=== PATIENT | female | born 1950 | race Caucasian/White ===

== ENCOUNTER 2017-03-03 12:00 | Emergency (ER) | payer OTHER ==
[2017-03-03 12:11] VITALS: BP 134/85; PULSE 62; TEMP 98.1; BMI 22.4
--- NOTE | 2017-03-03 12:12 | PDOC ---
History of Present Illness - General Chief Complaint: Injury Stated Complaint: RT ANKLE PAIN Time Seen by Provider: 03/03/17 12:07 History Source: Patient Exam Limitations: No Limitations - History of Present Illness Initial Comments: 03/03/17 12:08 CHIEF COMPLAINT: Right foot injury just prior to arrival HISTORY OF PRESENT ILLNESS: This is a 66-year-old woman with no significant past medical history. She states she stepped into a pothole just prior to arrival, twisting her right foot. She denies any injury to her right ankle. She states there is pain over the lateral midfoot. The pain gets worse with weightbearing. Currently, the pain is mild. She also got a superficial scrape to the top of her left foot, but there is no other injury to that area, and she was able to hop on her left foot without difficulty. REVIEW OF SYSTEMS: Fever or chills No head or neck injury Positive right foot injury, see history of present illness No right ankle injury Past History - Past Medical History Allergies/Adverse Reactions: Allergies Allergy/AdvReac Type Severity Reaction Status Date / Time No Known Allergies Allergy Verified 03/03/17 12:05 Home Medications: Ambulatory Orders Ibuprofen 600 mg PO TID PRN #14 tablet 03/03/17 Diabetes: No HTN: No - Immunization History Td Vaccination: No - Psycho/Social/Smoking Cessation Hx Anxiety: No Suicidal Ideation: No Smoking Status: No Smoking History: Never smoked Number of Cigarettes Smoked Daily: 0 *Physical Exam - Physical Exam Comments: 03/03/17 12:09 GENERAL: The patient is awake, alert, and fully oriented, in no acute distress. HEAD: Normal with no signs of trauma. EYES: Pupils equal, round and reactive to light, extraocular movements intact, sclera anicteric, conjunctiva clear. EXTREMITIES: The left leg is unremarkable throughout. The right leg has a normal hip, normal knee, normal ankle with no medial or lateral malleolar tenderness. Right foot has mild tenderness over the lateral midfoot, but medial to the fifth metatarsal. (Patient states she has a history of prior fracture of the fifth metatarsal.) Sensation and pulses and capillary refill of the right foot are all normal. Skin is intact. NEUROLOGICAL: Normal speech, normal gait. PSYCH: Normal mood, normal affect. SKIN: Intact. Warm, Dry, normal turgor, no rashes or lesions noted. ED Treatment Course - RADIOLOGY Radiology Studies Ordered: Category Date Time Status FOOT-RIGHT [RAD] Stat Radiology 03/03/17 12:07 Ordered Medical Decision Making - Medical Decision Making 03/03/17 12:11 Patient presents after stepping into a pot hole just prior to admission. She comes in by EMS due to pain in the right foot with weightbearing. She denies any right ankle injury, but she does have pain in her right lateral midfoot upon weightbearing. There is no visible swelling on examination. There is some mild tenderness over the lateral midfoot, but medial to the fifth metatarsal. The ankle is completely normal on examination. Plan: Right foot x-ray. No ankle x-ray indicated. 03/03/17 12:26 X-ray of the right foot was completed, 3 views. Upon my initial review, there is no evidence of fracture or dislocation. Final radiologist reading is pending at the time of disposition. Wet reading placed for callback procedure. *DC/Admit/Observation/Transfer Diagnosis at time of Disposition: Sprain of right foot Qualifiers: Encounter type: initial encounter Qualified Code(s): S93.601A - Unspecified sprain of right foot, initial encounter - Discharge Dispostion Disposition: HOME Condition at time of disposition: Stable Admit: No - Prescriptions Prescriptions: Ibuprofen 600 mg PO TID PRN #14 tablet PRN Reason: foot pain - Referrals Referrals: Kiko Garnett MD [Staff Physician] - - Patient Instructions Printed Discharge Instructions: DI for Foot Sprain Additional Instructions: You were evaluated today after twisting her right foot. The x-ray shows no broken bones on the preliminary review by the emergency room physician. The radiologist will perform a final review and will notify you if there is any abnormal finding. Rest, elevate the foot, apply the Harjit bandage to maintain support during the day, remove it at night. Apply ice packs for 20 minutes every few hours to prevent swelling. Take ibuprofen 600 mg 3 times a day if needed for pain. Follow-up with orthopedics, Dr. Kiko Garnett, if the symptoms are not improving in a few days. Return to the emergency department for any severe or progressive symptoms.
== END 2017-03-03 12:40 | disposition home or self-care (01) ==
LOC: FER 12:00
DX: S93.601A Unspecified sprain of right foot, initial encounter (principal); W17.89XA Other fall from one level to another, initial encounter; Y93.89 Activity, other specified; Y92.410 Unspecified street and highway as the place of occurrence of the external cause
CPT/HCPCS: 73630-TC-RT; 99283-25

== ENCOUNTER 2017-07-24 13:30 | Emergency (ER) | payer OTHER ==
[2017-07-24 13:36] VITALS: TEMP 98.1; BMI 22.4
--- NOTE | 2017-07-24 14:12 | PDOC ---
History of Present Illness - General History Source: Patient Exam Limitations: No Limitations - History of Present Illness Timing/Duration: reports: intermittent Chest Pain Radiation: reports: no radiation <Noemi Alejandre - Last Filed: 07/24/17 16:25> - General History Source: Patient Exam Limitations: No Limitations <AyeRicardo - Last Filed: 07/25/17 22:26> - General Chief Complaint: Chest Pain Stated Complaint: CHEST PAIN Time Seen by Provider: 07/24/17 13:32 - History of Present Illness Initial Comments: 07/24/17 14:56 66F with no PMh presenting with right sided chest pain on exertion since yesterday morning. She states that she exercises a lot, is healthy, no pmh. Had an echo done last year. (Ricardo Griffiths) Past History <Noemi Alejandre - Last Filed: 07/24/17 16:25> - Past Medical History COPD: No Diabetes: No HTN: No - Immunization History Td Vaccination: No - Suicide/Smoking/Psychosocial Hx Smoking Status: No Smoking History: Never smoked Have you smoked in the past 12 months: No Number of Cigarettes Smoked Daily: 0 Information on smoking cessation initiated: No Hx Alcohol Use: (social) Substance Use Type: None <Ricardo Griffiths - Last Filed: 07/25/17 22:26> - Past Medical History Allergies/Adverse Reactions: Allergies Allergy/AdvReac Type Severity Reaction Status Date / Time No Known Allergies Allergy Verified 07/24/17 13:31 Home Medications: Ambulatory Orders NK [No Known Home Medication] 07/24/17 Review of Systems - Review of Systems Able to Perform ROS?: Yes Is the patient limited Iranian proficient: No Constitutional: No: Symptoms Reported HEENTM: No: Symptoms Reported Respiratory: Yes: See HPI Cardiac (ROS): No: Symptoms Reported ABD/GI: No: Symptoms Reported : No: Symptoms Reported Musculoskeletal: No: Symptoms Reported Integumentary: No: Symptoms Reported Neurological: No: Symptoms reported <Ricardo Griffiths - Last Filed: 07/25/17 22:26> *Physical Exam - Physical Exam General Appearance: Yes: Nourished, Appropriately Dressed, Apparent Distress HEENT: positive: EOMI, WANDA, Normal ENT Inspection Neck: negative: Tender Respiratory/Chest: positive: Lungs Clear, Normal Breath Sounds. negative: Chest Tender Cardiovascular: positive: Regular Rhythm, Regular Rate, S1, S2 Gastrointestinal/Abdominal: positive: Normal Bowel Sounds, Flat, Soft. negative : Tender Neurologic: positive: Fully Oriented, Alert, Normal Mood/Affect <Ricardo Griffiths - Last Filed: 07/25/17 22:26> - Vital Signs Last Vital Signs Temp Pulse Resp BP Pulse Ox 98.1 F 78 16 136/75 98 07/24/17 15:20 07/24/17 15:20 07/24/17 15:20 07/24/17 15:20 07/24/17 15:20 ED Treatment Course - LABORATORY CBC & Chemistry Diagram: 07/24/17 14:15 07/24/17 14:15 <Noemi Alejandre - Last Filed: 07/24/17 16:25> - LABORATORY CBC & Chemistry Diagram: 07/24/17 14:15 07/24/17 14:15 <Ricardo Griffiths - Last Filed: 07/25/17 22:26> - ADDITIONAL ORDERS Additional order review: 07/24/17 14:15 RBC 4.87 MCV 89.7 MCHC 33.7 RDW 12.1 MPV 9.6 Neutrophils % 55.8 Lymphocytes % 29.1 Monocytes % 11.6 H Eosinophils % 1.4 Basophils % 2.1 H - RADIOLOGY Radiology Studies Ordered: Category Date Time Status CXRPORT [CHEST X-RAY PORTABLE*] [RAD] Stat Radiology 07/24/17 14:04 Completed Medical Decision Making <Noemi Alejandre - Last Filed: 07/24/17 16:25> <Ricardo Griffiths - Last Filed: 07/25/17 22:26> - Medical Decision Making 07/25/17 22:25 EKG, CXR, labs, lytes cardiac enzymes all negative. PAtient d/c and told to follow up with PCP or blacking wheel tender for eventual stress test. 07/25/17 22:26 Told to come back for any new, worsening or concerning symptoms. (Ricardo Griffiths) *DC/Admit/Observation/Transfer <Noemi Alejandre S - Last Filed: 07/24/17 16:25> - Discharge Dispostion Admit: No <Ricardo Griffiths - Last Filed: 07/25/17 22:26> Diagnosis at time of Disposition: Costochondritis, acute, Anxiety, Atypical chest pain - Discharge Dispostion Disposition: HOME Condition at time of disposition: Improved - Referrals Referrals: Hoa Luke [Primary Care Provider] - - Patient Instructions Printed Discharge Instructions: DI for Atypical Chest Pain Additional Instructions: Come back for any new, worsening or concerning symptoms
[2017-07-24 14:26] LABS: BASOPHIL 2.1 % (0-2.0); EOSINOPHIL 1.4 % (0-4.5); MCH 30.2 pg (25.7-33.7); MCHC 33.7 g/dl (32.0-36.0); MEAN CELL VOLUME 89.7 fl (80-96); MEAN PLT VOLUME 9.6 fl (7.5-11.1); NEUTROPHILS 55.8 % (42.8-82.8); PLATELET COUNT 394 K/MM3 (134-434); RDW 12.1 % (11.6-15.6); WHITE BLOOD COUNT 9.5 K/mm3 (4.0-10.8)
[2017-07-24 14:39] LABS: ALBUMIN 4.4 g/dl (3.5-5.0); ALK PHOS 64 U/L (32-92); ANION GAP 10 (8-16); BILIRUBIN,TOTAL 0.4 mg/dl (0.2-1.0); CALCIUM 9.7 mg/dl (8.4-10.2); CO2 27 mmol/L (22-28); CPK 68 IU/L (26-192); CREATININE 0.7 mg/dl (0.6-1.3); GLUCOSE,RANDOM 87 mg/dl (74-106); SGOT/AST 29 U/L (10-42); SGPT/ALT 21 U/L (10-40); TOT PROT 7.1 g/dl (6.4-8.3)
[2017-07-24 15:15] LABS: TROPONIN I (DFP) < 0.03 ng/ml (0.03-0.50)
[2017-07-24 15:40] VITALS: BP 136/75; PULSE 78
--- NOTE | 2017-07-25 08:55 | EKG ---
Test Reason : Blood Pressure : / mmHG Vent. Rate : 065 BPM Atrial Rate : 065 BPM P-R Int : 150 ms QRS Dur : 084 ms QT Int : 402 ms P-R-T Axes : 009 004 006 degrees QTc Int : 418 ms NORMAL SINUS RHYTHM NORMAL ECG NO PREVIOUS ECGS AVAILABLE Confirmed by ISAIAH GUILLAUME MD ([id number]) on 07/25/2017 8:55:08 AM Referred By: SILVESTRE AGUIRRE Confirmed By:ISAIAH GUILLAUME MD
--- NOTE | 2017-07-26 15:47 | PDOC ---
Attending Attestation - Resident Resident Name: Ricardo Griffiths - ED Attending Attestation I have performed the following: I have examined & evaluated the patient, The case was reviewed & discussed with the resident, I agree w/resident's findings & plan - HPI HPI: RIGHT SIDED CHEST PAIN IN THIS ATHLETIC YOUNG LADY. WITH NORMAL ECHO REPORTEDLY DONE RECENTLY 07/26/17 15:48 - Physicial Exam PE: ALERT, ORIENTED X3 NO ACUTE DISTRESS HEAD ERON NECK SUPLE MILD TO MODERATE TENDERNESS AT PALPATION ON THE THORACIC CAGE HEART SIS2 LUNGS CLEAR 07/26/17 15:50 - Medical Decision Making 07/26/17 15:47
== END 2017-07-24 15:40 | disposition home or self-care (01) ==
LOC: FER 13:30
DX: M94.0 Chondrocostal junction syndrome [Tietze] (principal); R07.89 Other chest pain; F41.9 Anxiety disorder, unspecified
CPT/HCPCS: 36415; 71010-TC; 80053; 82550; 84484; 85025; 93005; 99284-25

== ENCOUNTER 2017-09-03 08:14 | Inpatient (IN) | payer OTHER ==
[2017-09-03 08:18] VITALS: BMI 22.4
[2017-09-03] MEDS ORDERED: SODIUM CHLORIDE 0.9% 500 ML INFUS.BAG IV ONE ×2 (08:37→13:10)
--- NOTE | 2017-09-03 08:43 | PDOC ---
History of Present Illness - General Chief Complaint: Diarrhea Stated Complaint: blood in stool, diarrhea, abd pain Time Seen by Provider: 09/03/17 08:18 - History of Present Illness Initial Comments: 09/03/17 08:37 66-year-old female with no significant past medical history presents the emergency department complaining of diarrhea and bright red blood per rectum. The patient reports she was in her usual state of health until 11 PM last night she began to experience lower abdominal cramping followed initially by brown watery diarrhea however at 4 AM the patient began to notice bright red blood with clots. She reports up to 5 episodes of painless bright red blood per rectum , filling up the toilet. She reports with one episode she felt very lightheaded and became diaphoretic and almost passed out. She reports spending the day exploring the city yesterday and had dinner at a restaurant. She reports she had the same food as her family except she had dish with clams that only she ate. Reports occasional ibuprofen use for pain but not everyday. Pt has taken 4 immodium pills since last night to try to slow down the diarrhea with minimal improvement. Reports currently feeling thirsty. Denies loss of consciousness or falls. Has never had similar symptoms in the past. Not on any blood thinners. No recent antibiotics or hospitalizations. Reports her last colonoscopy was when she was 52 and she was told she had diverticuli but otherwise had a normal colonoscopy. No hx diverticulosis or diverticulitis. Denies any nausea, vomiting , current abdominal pain. Denies focal weakness or numbness. Denies chest pain or shortness of breath. Denies urinary symptoms. Denies significant weight loss recently. No recent travel. PMD: Dr. Hoa Luke Social: denies etoh, tobacco, illicit drugs. Past History - Past Medical History Allergies/Adverse Reactions: Allergies Allergy/AdvReac Type Severity Reaction Status Date / Time No Known Allergies Allergy Verified 09/03/17 08:16 Home Medications: Ambulatory Orders NK [No Known Home Medication] 07/24/17 COPD: No Diabetes: No HTN: No - Immunization History Td Vaccination: No - Suicide/Smoking/Psychosocial Hx Smoking Status: No Smoking History: Never smoked Have you smoked in the past 12 months: No Number of Cigarettes Smoked Daily: 0 Hx Alcohol Use: Yes Drug/Substance Use Hx: No Substance Use Type: Alcohol Review of Systems - Review of Systems Comments:: 09/03/17 08:43 GENERAL/CONSTITUTIONAL: No fever or chills. No weakness. +diaphoresis. HEAD, EYES, EARS, NOSE AND THROAT: No change in vision. No ear pain or discharge. No sore throat. GASTROINTESTINAL: No nausea, vomiting, +diarrhea +rectal bleeding GENITOURINARY: No dysuria, frequency, or change in urination. CARDIOVASCULAR: No chest pain or shortness of breath. RESPIRATORY: No cough, wheezing, or hemoptysis. MUSCULOSKELETAL: No joint or muscle swelling or pain. No neck or back pain. SKIN: No rash NEUROLOGIC: No headache, vertigo, loss of consciousness, or change in strength/ sensation. ENDOCRINE: No increased thirst. No abnormal weight change. HEMATOLOGIC/LYMPHATIC: No anemia, easy bleeding, or history of blood clots. ALLERGIC/IMMUNOLOGIC: No hives or skin allergy. *Physical Exam - Vital Signs Last Vital Signs Temp Pulse Resp BP Pulse Ox 98.6 F 78 16 130/89 100 09/03/17 08:16 09/03/17 08:16 09/03/17 08:16 09/03/17 08:16 09/03/17 08:16 - Physical Exam Comments: 09/03/17 08:48 GENERAL: Awake, alert, and fully oriented, in no acute distress HEAD: No signs of trauma EYES: PERRLA, EOMI, sclera anicteric, conjunctiva clear ENT: Auricles normal inspection, hearing grossly normal, nares patent, oropharynx clear without exudates. dry MM NECK: Normal ROM, supple, no lymphadenopathy, JVD, or masses LUNGS: Breath sounds equal, clear to auscultation bilaterally. No wheezes, and no crackles HEART: Regular rate and rhythm, normal S1 and S2, no murmurs, rubs or gallops ABDOMEN: Soft, nontender, normoactive bowel sounds. +voluntary guarding throughout, no rebound. No masses. RECTAL: No aqctival bleeding, no hemorrhoids, no stool in rectal vault. Pt had BM shortly thereafter with bright red mucousy stool EXTREMITIES: Normal range of motion, no edema. No clubbing or cyanosis. No cords, erythema, or tenderness NEUROLOGICAL: Normal speech, cranial nerves intact, negative pronator drift, 5/ 5 strength in all 4 extremities, normal sensation to light touch in all 4 extremities, normal cerebellar exam, normal gait, normal reflexes and tone SKIN: Warm, Dry, normal turgor, no rashes or lesions noted. ED Treatment Course - LABORATORY CBC & Chemistry Diagram: 09/03/17 08:44 09/03/17 08:44 Medical Decision Making - Medical Decision Making 09/03/17 08:53 56-year-old female with no significant past medical history presents with multiple episodes of bright red blood per rectum. Vitals initially are unremarkable. Exam with voluntary guarding. Patient had a bright red bloody bowel movements with mucus in the ED. Differential is wide and includes but is not limited to diverticulosis versus infectious colitis possibly secondary vibrio parahemolyticus given the patient ate clams yesterday or enterohemorrhagic Escherichia coli. Plan: -labs -CTAP -UA -IVF -likely admit 09/03/17 13:48 Labs remarkable for leukocytosis to 12. Patient reports initial relief with morphine however pain has returned and required another dose of IV morphine. CT scan has been done however there have been multiple delays due to the study being locked in radiology. Discussed with Lissy (quality analyst/technical writer) who reports she is currently working on releasing the study so that he can be read. Case discussed with Dr. Luke who adds that the patient had a pancratic cyst that was worked up with MRI a few months ago and was thought to be a pseudocyst. She agrees with our management and will follow up with the patient as an outpatient. 09/03/17 14:10 CT scan with infectious vs inflammatory colitis. Pt with persistent abd pain. Pt infomred of results. Medicine has been microblogged for admission, awaiting call back. 09/03/17 14:40 Case discussed with Miriam Isabel, pt to be admitted to Dr. Gordon. Case discussed in detail with admitting physician including history, physical exam and ancillary studies. Admitting physician has assumed care for the patient, will follow all pending diagnostics and will complete the evaluation and treatment. *DC/Admit/Observation/Transfer Diagnosis at time of Disposition: BRBPR (bright red blood per rectum) - Discharge Dispostion Condition at time of disposition: Stable Admit: Yes - Referrals - Patient Instructions - Post Discharge Activity - Attestations Physician Attestion: 09/03/17 15:01 I, Dr. Crystal Segovia MD, attest that this document has been prepared under my direction and personally reviewed by me in its entirety. I further attest, that it accurately reflects all work, treatment, procedures and medical decision -making performed by me.
[2017-09-03 09:05] LABS: EOSINOPHIL 0.5 % (0-4.5); MCH 30.1 pg (25.7-33.7); MCHC 33.5 g/dl (32.0-36.0); MEAN CELL VOLUME 89.8 fl (80-96); MEAN PLT VOLUME 10.3 fl (7.5-11.1); NEUTROPHILS 81.9 % (42.8-82.8); PLATELET COUNT 386 K/MM3 (134-434); RDW 12.4 % (11.6-15.6); WHITE BLOOD COUNT 11.8 K/mm3 (4.0-10.8)
[2017-09-03] MEDS ORDERED: morphine SULFATE 4 MG/ML VIAL ONE ×2 (09:23→11:34)
[2017-09-03] MEDS ORDERED: morphine CARPU-JECT 4 MG/1 ML DISP.SYRIN IVPUSH ONE ×2 (09:32→11:29)
[2017-09-03 09:33] LABS: ACTIVATED PTT 28.3 SECONDS (24.0-38.9); ALBUMIN 4.3 g/dl (3.5-5.0); ALK PHOS 67 U/L (32-92); ANION GAP 6 (8-16); BILIRUBIN,TOTAL 0.8 mg/dl (0.2-1.0); CALCIUM 9.5 mg/dl (8.4-10.2); CO2 24 mmol/L (22-28); CREATININE 0.7 mg/dl (0.6-1.3); GLUCOSE,RANDOM 116 mg/dl (74-106); SGOT/AST 28 U/L (10-42)
[2017-09-03 09:38] LABS: INR 0.98 (0.82-1.09)
[2017-09-03 11:16] LABS: SGPT/ALT 24 U/L (12-78)
[2017-09-03 13:56] LABS: URINE APPEARANCE CLEAR; URINE BILIRUBIN NEGATIVE (NEGATIVE); URINE COLOR YELLOW; URINE GLUCOSE (UA) NEGATIVE (NEGATIVE); URINE KETONE NEGATIVE (NEGATIVE)
[2017-09-03 13:57] LABS: URINE BLOOD NEGATIVE (NEGATIVE); URINE NITRITE NEGATIVE (NEGATIVE); URINE PROTEIN NEGATIVE (NEGATIVE); URINE UROBILINOGEN 0.2 (0.2-1.0)
[2017-09-03 13:58] LABS: URINE LEUK ESTERASE NEGATIVE (NEGATIVE)
[2017-09-03] MEDS ORDERED: SODIUM CHLORIDE 1,000 ML IV SCH (16:15)
[2017-09-03] MEDS ORDERED: morphine SULFATE 4 MG/ML VIAL IVPUSH PRN ×2 (16:49→21:20)
[2017-09-03] MEDS ORDERED: CIPROFLOXACIN 200 MG/D5W 100 ML IVPB SCH ×2 (18:00→22:00)
--- NOTE | 2017-09-03 18:35 | PN ---
Progress Note (short form) - Note Progress Note: ID Consult dictated 66 y/o female admitted with crampy abdominal pain, bloody diarrhea, near syncope. No fever, slightly elevated WBC Infectious colitis v. inflammatory bowel disease Await BC, stool studies Empiric ceftriaxone / flagyl
[2017-09-03] MEDS ORDERED: CEFTRIAXONE 2 GM in DEXTROSE 5%-WATER - 100 ML IVPB SCH (18:45)
--- NOTE | 2017-09-03 19:21 | CONS ---
INFECTIOUS DISEASE CONSULTATION DATE OF CONSULTATION: 09/03/2017 HISTORY OF PRESENT ILLNESS: The patient is a 66-year-old, previously healthy female, who is evaluated for bloody diarrhea. Patient states that she was well until 11 p.m. last evening. She had dinner at a restaurant at approximately 6 p.m., having a meal which included prosciutto, fried calamari, and linguini in a white clam sauce. She did well until after she fell asleep. She awoke at 11 p.m. with crampy abdominal pain. She had multiple episodes of frankly bloody diarrhea. She also developed diaphoresis, weakness, and near syncope. She presented to the emergency room where a CAT scan was performed and showed infectious versus inflammatory colitis involving the descending colon and proximal sigmoid. In addition, cystic lesions were present in the pancreatic head and right hepatic lobe. She apparently has a history of pancreatic cysts in the past. She denies any fever. White blood cell count was slightly elevated. No other diners became ill. However, nobody had the same meal. She denies any recent antibiotic therapy. No recent travel. No known ill contacts. No prior history of rectal bleeding or inflammatory bowel disease. She had a colonoscopy at age 52. PAST MEDICAL HISTORY: Negative. No recent hospitalizations. ALLERGIES: No known allergies. LABORATORY DATA: White count 11.8, neutrophils 87, lymphocytes 12, monocytes 3; hematocrit 44.9; platelet count 386. BUN 13, creatinine 0.7. Liver enzymes normal. Urinalysis: Negative leukocyte esterase. Lipase 24. PHYSICAL EXAMINATION: General: She is supine in bed. She appears weak, however, not acutely toxic appearing. Vital Signs: Temperature 97.8; blood pressure 144/74; pulse 60, regular; respirations 16 per minute. HEENT: Sclerae are anicteric. Dry mucous membranes. Heart: Sounds S1, S2. Lungs: Clear. Abdomen: Positive bowel sounds. Abdomen is soft. There is mild diffuse tenderness diffusely. There is no mass, rebound, or rigidity. Extremities: Negative for edema. IMPRESSION: A 66-year-old female admitted with crampy abdominal pain, bloody diarrhea, and near syncope. Patient is afebrile, slightly elevated white blood cell count. CAT scan consistent with infectious colitis versus inflammatory bowel disease. RECOMMENDATIONS: Await blood cultures, obtain stool cultures for enteric pathogens including salmonella, shigella, campylobacter, enterotoxigenic E. coli. Will obtain Shiga toxin, stool for norovirus and rotavirus, blood cultures, ova and parasites, C. difficile. Empiric antibiotic coverage with ceftriaxone and Flagyl. GI followup. Will follow. Thank you for the kind referral. ROSETTA CLIFFORD M.D. [id number]
--- NOTE | 2017-09-03 20:08 | HP ---
Admitting History and Physical - Primary Care Physician PCP: Dr. Hoa Livingston (Doctor not on staff) - Admission Chief Complaint: Bloody Diarrhea, Abdominal Cramping History of Present Illness: This is a 66 y/o woman with a past medical history of OA, Pancreatic Cysts. Who reports to the ED with lower abdominal cramping, diarrhea and bright red blood per rectum since 11pm last night. Patient reports eating seafood- clams and pasta at a restaurant in [facility] last night around 6pm. Patient reports at 11pm she began having abdominal cramping and diarrhea with BRBPR and mucous > 6 times. She reports that initially she became diaphoretic and nauseous- resolved. Patient reports no other family members became ill, but they did not consume the same meal. Patient reports feeling well earlier that day without incident. Patient reports having an allergic reaction to Clams- Hives many years ago, and has had Clams since without incident. Patient reports not following a "healthy diet" as well as not drinking lots of fluids. Patient reports a change in bowel habits around June, but has since been more regular. Her last colonoscopy was at age 52- no polyps, per pt. Patient denies fever, chills, cough, CP, vomiting, constipation, dysuria, hematuria History Source: Patient Limitations to Obtaining History: No Limitations - Past Medical History Gastrointestinal: Yes: Other (pancreatic cysts) Reproductive: Yes: Postmenopausal ...LMP Comment: lmp 20 years ago ...: No Musculoskeletal: Yes: Osteoarthritis Dermatology: Yes: Basal Cell (in her 20s) - Past Surgical History Past Surgical History: Yes: Colonoscopy Additional Past Surgical History: Breast Reduction - Smoking History Smoking history: Never smoked Have you smoked in the past 12 months: No Aproximately how many cigarettes per day: 0 - Alcohol/Substance Use Hx Alcohol Use: Yes (socially) History of Substance Use: reports: None - Social History Usual Living Arrangement: Yes: Alone ADL: Independent 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 History of Recent Travel: No Home Medications - Allergies Allergies/Adverse Reactions: Allergies Allergy/AdvReac Type Severity Reaction Status Date / Time No Known Allergies Allergy Verified 09/03/17 08:16 - Home Medications Home Medications: Ambulatory Orders NK [No Known Home Medication] 07/24/17 Family Disease History - Family Disease History Family Disease History: CA: Brother (Throat), Other: Mother (Dementia, Arthritis ) Review of Systems - Review of Systems Constitutional: reports: Diaphoresis, Weakness Eyes: reports: No Symptoms HENT: reports: Other (Dry mucous membranes) Neck: reports: No Symptoms Cardiovascular: reports: No Symptoms Respiratory: reports: No Symptoms Gastrointestinal: reports: Abdominal Pain, Diarrhea, Rectal Bleeding Genitourinary: reports: No Symptoms Breasts: reports: No Symptoms Reported Musculoskeletal: reports: No Symptoms Integumentary: reports: No Symptoms Neurological: reports: No Symptoms Endocrine: reports: No Symptoms Psychiatric: reports: No Symptoms Pain Intensity: 4 Physical Examination Vital Signs: Vital Signs Temperature 97.8 F 09/03/17 15:30 Pulse Rate 60 09/03/17 15:30 Respiratory Rate 16 09/03/17 15:30 Blood Pressure 144/74 09/03/17 15:30 O2 Sat by Pulse Oximetry (%) 100 09/03/17 15:30 Labs: CBC, BMP 09/03/17 08:44 09/03/17 08:44 Imaging - Results Cat Scan: Report Reviewed (CTAP-nonspecific infectious vs inflammatory Colitis descending colon proximal sigmoid colon.), Image Reviewed Problem List - Problems (1) Colitis, acute Code(s): K52.9 - NONINFECTIVE GASTROENTERITIS AND COLITIS, UNSPECIFIED (2) Abdominal cramping Code(s): R10.9 - UNSPECIFIED ABDOMINAL PAIN (3) BRBPR (bright red blood per rectum) Code(s): K62.5 - HEMORRHAGE OF ANUS AND RECTUM (4) DVT prophylaxis Code(s): TKX5672 - Assessment/Plan This is a 66 y/o woman with a PMHx of: OA, Pancreatic Cysts. Admitted with Acute Colitis likely secondary to shellfish poisoning Plan: 1. GI: Acute Colitis - Likely secondary to Shellfish Poisoning - CTAP report- nonspecific infectious vs inflammatory colitis, descending colon , proximal sigmoid colon - Blood Cultures-pending - Stool cultures-pending - Mild leukocytosis, L- shift, afebrile, lactic acid- normal - Rocephin/Flagyl started in ED and continued - ID Following - Appreciate GI Consult - Continue IVF - Continue Morphine Sulfate prn - NPO except ice chips - Repeat CBCD, BMP in am - Monitor vitals 2. Bloody Diarrhea - See Above 3. OA - No current meds - Will continue to monitor and treat accordingly 4. Pancreatic Cysts - f/u with your PMD/GI as indicated 5. FEN - NS@83ml/hr - Replete lytes prn 6. DVT Prophylaxis - OOB - SCDs Code Status: Full Code Dispo: Requires Inpatient Care Visit type - Emergency Visit Emergency Visit: Yes ED Registration Date: 09/03/17 Care time: The patient presented to the Emergency Department on the above date and was hospitalized for further evaluation of their emergent condition. - New Patient This patient is new to me today: Yes Date on this admission: 09/03/17 - Critical Care Critical Care patient: No
[2017-09-03] MEDS: METRONIDAZOLE 500 MG PREMIXED 500 MG/100 ML MG IVPB SCH (20:12)
[2017-09-04] MEDS: METRONIDAZOLE 500 MG PREMIXED 500 MG/100 ML MG IVPB SCH ×3 (01:45→17:45)
[2017-09-04 07:36] LABS: BASOPHIL 1.5 % (0-2.0); EOSINOPHIL 2.5 % (0-4.5); MCH 30.5 pg (25.7-33.7); MCHC 33.6 g/dl (32.0-36.0); MEAN CELL VOLUME 90.7 fl (80-96); MEAN PLT VOLUME 9.6 fl (7.5-11.1); NEUTROPHILS 72.5 % (42.8-82.8); PLATELET COUNT 313 K/MM3 (134-434); RDW 12.5 % (11.6-15.6); WHITE BLOOD COUNT 10.7 K/mm3 (4.0-10.8)
[2017-09-04 07:57] LABS: ANION GAP 4 (8-16); CALCIUM 8.6 mg/dl (8.4-10.2); CO2 25 mmol/L (22-28); CREATININE 0.7 mg/dl (0.6-1.3); GLUCOSE,RANDOM 100 mg/dl (74-106)
--- NOTE | 2017-09-04 09:12 | PN ---
Physical Exam: SUBJECTIVE: Patient seen and examined, reports abdominal pain has resolved, reports feeling hungry, patient denies any tactile fevers OBJECTIVE: patient is a 66 y/o woman with a past medical history of OA and Pancreatic Cysts, patient was admitted from the emergency department for colitis. Vital Signs Period Temp Pulse Resp BP Sys/Mckeon Pulse Ox Last 24 Hr 97.8 F-98.3 F 54-72 16-18 111-144/50-74 97-100 GENERAL: The patient is awake, alert, and fully oriented, in no acute distress. HEAD: Normal with no signs of trauma. EYES: PERRL, extraocular movements intact, sclera anicteric, conjunctiva clear. No ptosis. ENT: Ears normal, nares patent, oropharynx clear without exudates, moist mucous membranes. NECK: Trachea midline, full range of motion, supple. LUNGS: Breath sounds equal, clear to auscultation bilaterally, no wheezes, no crackles, no accessory muscle use. HEART: Regular rate and rhythm, S1, S2 without murmur, rub or gallop. ABDOMEN: Soft, nontender, nondistended, hyperactive bowel sounds, no guarding, no rebound, no hepatosplenomegaly, no masses. EXTREMITIES: 2+ pulses, warm, well-perfused, no edema. NEUROLOGICAL: Cranial nerves II through XII grossly intact. Normal speech, gait not observed. PSYCH: Normal mood, normal affect. SKIN: Warm, dry, normal turgor, no rashes or lesions noted Laboratory Results - last 24 hr CBC WBC 10.7 K/mm3 (4.0-10.8) 09/04/17 07:30 RBC 4.19 M/mm3 (3.60-5.2) 09/04/17 07:30 Hgb 12.8 GM/dl (10.7-15.3) D 09/04/17 07:30 Hct 38.0 % (32.4-45.2) D 09/04/17 07:30 MCV 90.7 fl (80-96) 09/04/17 07:30 MCH 30.5 pg (25.7-33.7) 09/04/17 07:30 MCHC 33.6 g/dl (32.0-36.0) 09/04/17 07:30 RDW 12.5 % (11.6-15.6) 09/04/17 07:30 Plt Count 313 K/MM3 (134-434) 09/04/17 07:30 MPV 9.6 fl (7.5-11.1) 09/04/17 07:30 Neutrophils % 72.5 % (42.8-82.8) 09/04/17 07:30 Lymphocytes % 17.0 % (8-40) D 09/04/17 07:30 Monocytes % 6.5 % (3.8-10.2) D 09/04/17 07:30 Eosinophils % 2.5 % (0-4.5) D 09/04/17 07:30 Basophils % 1.5 % (0-2.0) 09/04/17 07:30 CMP Sodium 136 mmol/L (136-145) 09/04/17 07:30 Potassium 4.6 mmol/L (3.5-5.1) 09/04/17 07:30 Chloride 107 mmol/L (98-107) 09/04/17 07:30 Carbon Dioxide 25 mmol/L (22-28) 09/04/17 07:30 Anion Gap 4 (8-16) L 09/04/17 07:30 BUN 8 mg/dl (7-18) D 09/04/17 07:30 Creatinine 0.7 mg/dl (0.6-1.3) 09/04/17 07:30 Creat Clearance w eGFR > 60 (>60) 09/03/17 08:44 Random Glucose 100 mg/dl (74-106) 09/04/17 07:30 Lactic Acid 1.3 mmol/L (0.4-2.0) 09/03/17 08:44 Calcium 8.6 mg/dl (8.4-10.2) 09/04/17 07:30 Magnesium 1.8 mg/dL (1.8-2.4) 09/04/17 07:30 Total Bilirubin 0.8 mg/dl (0.2-1.0) D 09/03/17 08:44 AST 28 U/L (10-42) 09/03/17 08:44 ALT 24 U/L (12-78) 09/03/17 08:44 Alkaline Phosphatase 67 U/L (32-92) 09/03/17 08:44 Total Protein 7.0 g/dl (6.4-8.3) 09/03/17 08:44 Albumin 4.3 g/dl (3.5-5.0) 09/03/17 08:44 Lipase 24 U/L (22-51) 09/03/17 08:44 Active Medications Generic Name Dose Route Start Last Admin Trade Name Freq PRN Reason Stop Dose Admin Sodium Chloride 1,000 mls @ 83 mls/hr 09/03/17 16:15 09/03/17 18:26 Normal Saline - IV 83 mls/hr ASDIR CALI Administration Metronidazole 500 mg in 100 mls @ 100 mls/hr 09/03/17 18:45 09/04/17 09:00 Flagyl 500mg Premixed Ivpb - IVPB 100 mls/hr Q8H-IV CALI Administration Ceftriaxone Sodium 2 gm in 100 mls @ 200 mls/hr 09/04/17 18:00 Rocephin 2gm Ivpb (Pre-Docked) IVPB DAILY@1800 CALI Morphine Sulfate 4 mg 09/03/17 21:20 09/03/17 23:45 Morphine Sulfate IVPUSH 4 mg Q6H PRN Administration PAIN Microbiology 09/03/17 08:55 Stool Gram Stain - Final 09/03/17 08:55 Stool Salmonella/Shigella Culture - Preliminary NO ENTERIC PATHOGENS, 24 HOURS, ON PRIMARY PLATES 09/03/17 08:55 Stool Yersinia Culture - Preliminary NO ENTERIC PATHOGENS, 24 HOURS, ON PRIMARY PLATES 09/03/17 08:55 Stool Vibrio Culture - Preliminary NO ENTERIC PATHOGENS, 24 HOURS, ON PRIMARY PLATES 09/03/17 08:55 Stool Escherichia coli 0157 Culture - Preliminary NO ENTERIC PATHOGENS, 24 HOURS, ON PRIMARY PLATES IMAGING ct of abd/pelvis: nonspecific infectious vs inflammatory colitis, descending colon, proximal sigmoid colon ASSESSMENT/PLAN: 1. GI: Acute Colitis - secondary to inflammatory vs infectious, leukocytosis resolved patient is afebrile, continue flagyl and rocephin - stool culture are negative to date - clear liquid diet then advance as tolerated - ID, Dr Acevedo consulted and following - Dr Lee, GI consulted, patient will require outpatient follow up within 6 weeks for colonoscopy 2. OA - No current meds - Will continue to monitor and treat accordingly 3. FEN - NS@83ml/hr - Replete lytes prn 4. DVT Prophylaxis - OOB - SCDs Code Status: Full Code Dispo: Requires Inpatient Care Visit type - Emergency Visit Emergency Visit: Yes ED Registration Date: 09/03/17 Care time: The patient presented to the Emergency Department on the above date and was hospitalized for further evaluation of their emergent condition. - New Patient This patient is new to me today: Yes Date on this admission: 09/04/17 - Critical Care Critical Care patient: No - Discharge Referral Referred to [facility] Med P.C.: No
[2017-09-04] MEDS ORDERED: ACETAMINOPHEN 325 MG TABLET (FP) PO PRN (09:55)
--- NOTE | 2017-09-04 10:19 | CON.GI ---
Consult Consult Specialty:: GI Referred by:: Hospitalist [facility] [place] - History of Present Illness History of Present Illness: A healthy 66 yof with acute onset lower abdominal, crampy pain, diarrhea and blood clots after a [place] out in the city. 9 other people who were at the table are asymptomatic. She is the only one who ate fried calamari. No prior history of the same. No history of IBD, recurrent colitis, chronically altered bowel habits. Last colonoscopy at age of 52. No weight loss, changes in stool caliper , dysphagia, odynophagia, jaundice. No history of excessive bleeding. No significant GI family history. This am, no events overnight, asymptomatic, comfortable, no bms since last night. 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 History of Recent Travel: No Home Medications - Allergies Allergies/Adverse Reactions: Allergies Allergy/AdvReac Type Severity Reaction Status Date / Time No Known Allergies Allergy Verified 09/03/17 08:16 - Home Medications Home Medications: Ambulatory Orders NK [No Known Home Medication] 07/24/17 Family Disease History - Family Disease History Family History: Unremarkable Family Disease History: CA: Brother (Throat), Other: Mother (Dementia, Arthritis ) Review of Systems Findings/Remarks: please refer to H&P, HPI Physical Exam-GI Vital Signs: Vital Signs Temperature 98.0 F 09/04/17 06:34 Pulse Rate 54 L 09/04/17 06:34 Respiratory Rate 18 09/04/17 06:34 Blood Pressure 111/50 09/04/17 06:34 O2 Sat by Pulse Oximetry (%) 97 09/04/17 06:34 Constitutional: Yes: Well Nourished, No Distress, Calm Eyes: Yes: Conjunctiva Clear HENT: Yes: Atraumatic Neck: Yes: Supple Cardiovascular: Yes: Regular Rate and Rhythm Respiratory: Yes: Regular Gastrointestinal Inspection: No: Ascites, Distention ...Auscultate: Yes: Normoactive Bowel Sounds ...Palpate: Yes: Soft. No: Firm/Rigid, Guarding, Tenderness Neurological: Yes: Alert, Oriented Psychiatric: Yes: Alert Labs: CBC, BMP 09/04/17 07:30 09/04/17 07:30 INR, PTT INR 0.98 (0.82-1.09) 09/03/17 08:44 Laboratory Results - last 24 hr 09/03/17 09/03/17 09/03/17 08:44 08:44 08:51 WBC RBC Hgb Hct MCV MCH MCHC RDW Plt Count MPV Neutrophils % Lymphocytes % Monocytes % Eosinophils % Basophils % Sodium Potassium Chloride Carbon Dioxide Anion Gap BUN Creatinine Random Glucose Calcium Magnesium ALT 24 Urine Color Urine Appearance Urine pH Ur Specific [place] Urine Protein Urine Glucose (UA) Urine Ketones Urine Blood Urine Nitrite Urine Bilirubin Urine Urobilinogen Ur Leukocyte Esterase Stool Occult Blood Blood Type B POSITIVE B POSITIVE Antibody Screen Negative 09/03/17 09/03/17 09/04/17 08:55 10:18 07:30 WBC 10.7 RBC 4.19 Hgb 12.8 D Hct 38.0 D MCV 90.7 MCH 30.5 MCHC 33.6 RDW 12.5 Plt Count 313 MPV 9.6 Neutrophils % 72.5 Lymphocytes % 17.0 D Monocytes % 6.5 D Eosinophils % 2.5 D Basophils % 1.5 Sodium Potassium Chloride Carbon Dioxide Anion Gap BUN Creatinine Random Glucose Calcium Magnesium ALT Urine Color Yellow Urine Appearance Clear Urine pH 5.0 Ur Specific [place] 1.010 Urine Protein Negative Urine Glucose (UA) Negative Urine Ketones Negative Urine Blood Negative Urine Nitrite Negative Urine Bilirubin Negative Urine Urobilinogen 0.2 Ur Leukocyte Esterase Negative Stool Occult Blood Positive Blood Type Antibody Screen 09/04/17 09/04/17 07:30 07:30 WBC RBC Hgb Hct MCV MCH MCHC RDW Plt Count MPV Neutrophils % Lymphocytes % Monocytes % Eosinophils % Basophils % Sodium 136 Potassium 4.6 Chloride 107 Carbon Dioxide 25 Anion Gap 4 L BUN 8 D Creatinine 0.7 Random Glucose 100 Calcium 8.6 Magnesium 1.8 ALT Urine Color Urine Appearance Urine pH Ur Specific [place] Urine Protein Urine Glucose (UA) Urine Ketones Urine Blood Urine Nitrite Urine Bilirubin Urine Urobilinogen Ur Leukocyte Esterase Stool Occult Blood Blood Type Antibody Screen Imaging - Results Cat Scan: Report Reviewed (colits (acute vs chronic). pancreatic, liver cysts) Problem List - Problems (1) Abdominal cramping Code(s): R10.9 - UNSPECIFIED ABDOMINAL PAIN (2) BRBPR (bright red blood per rectum) Code(s): K62.5 - HEMORRHAGE OF ANUS AND RECTUM (3) Colitis, acute Code(s): K52.9 - NONINFECTIVE GASTROENTERITIS AND COLITIS, UNSPECIFIED Assessment/Plan A 66 yo, healthy, with acute onset of the above symptoms/signs. No bms since yesterday. Strongly suspect infectious etiology. Doubt IBD, ischemia. Supportive care Follow blood and stool cultures CBC, CMP tomorrow in am Clear liquid diet and advance as tolerated Colonoscopy in 6 week - discussed with the patient
[2017-09-04] MEDS ORDERED: ZOLPIDEM TARTRATE 5 MG TABLET PO PRN (12:44)
[2017-09-04] MEDS ORDERED: CEFTRIAXONE 2 GM/100 ML BAG IVPB SCH (18:00)
[2017-09-05] MEDS: METRONIDAZOLE 500 MG PREMIXED 500 MG/100 ML MG IVPB SCH ×2 (01:21→09:29)
[2017-09-05 06:21] VITALS: BP 105/43; PULSE 51; TEMP 97.9
[2017-09-05 08:16] LABS: BASOPHIL 0.9 % (0-2.0); EOSINOPHIL 3.5 % (0-4.5); MCH 29.8 pg (25.7-33.7); MEAN CELL VOLUME 90.3 fl (80-96); MEAN PLT VOLUME 9.9 fl (7.5-11.1); NEUTROPHILS 66.4 % (42.8-82.8); PLATELET COUNT 299 K/MM3 (134-434); RDW 12.6 % (11.6-15.6); WHITE BLOOD COUNT 7.5 K/mm3 (4.0-10.8)
[2017-09-05 08:34] LABS: ALBUMIN 3.7 g/dl (3.5-5.0); ALK PHOS 52 U/L (32-92); ANION GAP 7 (8-16); BILIRUBIN,TOTAL 0.9 mg/dl (0.2-1.0); CALCIUM 8.8 mg/dl (8.4-10.2); CO2 25 mmol/L (22-28); CREATININE 0.7 mg/dl (0.6-1.3); GLUCOSE,RANDOM 91 mg/dl (74-106); MAGNESIUM 1.7 mg/dL (1.8-2.4); PHOSPHOROUS 4.4 mg/dl (2.5-4.6); SGOT/AST 21 U/L (10-42); SGPT/ALT 12 U/L (10-40); TOT PROT 6.2 g/dl (6.4-8.3)
[2017-09-05] MEDS ORDERED: MAGNESIUM SULFATE 2 GM in SODIUM CHLORIDE 100 ML IVPB ONE (09:11)
[2017-09-05] MEDS ORDERED: MAGNESIUM SULF 50% (8.12 MEQ/2 ML-1 GM VIAL) IVPB ONE (10:00)
--- NOTE | 2017-09-05 10:01 | PN ---
Progress Note, Physician History of Present Illness: ASwake, alert Supine in bed No c/o abdominal pain Reports no further BM since admission No fever/chills WBC WNL BC, stool c/s negative - Current Medication List Current Medications: Active Medications Acetaminophen (Tylenol -) 650 mg PO Q4H PRN PRN Reason: FEVER OR PAIN SCALE 1-5 Last Admin: 09/04/17 10:00 Dose: 650 mg Sodium Chloride (Normal Saline -) 1,000 mls @ 83 mls/hr IV ASDIR CALI Last Admin: 09/03/17 18:26 Dose: 83 mls/hr Metronidazole (Flagyl 500mg Premixed Ivpb -) 500 mg in 100 mls @ 100 mls/hr IVPB Q8H-IV CALI Last Admin: 09/05/17 09:29 Dose: 100 mls/hr Ceftriaxone Sodium (Rocephin 2gm Ivpb (Pre-Docked)) 2 gm in 100 mls @ 200 mls/ hr IVPB DAILY@1800 CLAI Last Admin: 09/04/17 17:46 Dose: 200 mls/hr Magnesium Sulfate (Magnesium Sulfate) 2 gm IVPB ONCE ONE Stop: 09/05/17 10:01 Last Admin: 09/05/17 09:28 Dose: 2 gm Morphine Sulfate (Morphine Sulfate) 4 mg IVPUSH Q6H PRN PRN Reason: PAIN SCALE >5 Last Admin: 09/03/17 23:45 Dose: 4 mg Zolpidem Tartrate (Ambien -) 5 mg PO HS PRN PRN Reason: INSOMNIA - Objective Vital Signs: Vital Signs Temperature 97.9 F 09/05/17 06:00 Pulse Rate 51 L 09/05/17 06:00 Respiratory Rate 18 09/05/17 06:00 Blood Pressure 105/43 09/05/17 06:00 O2 Sat by Pulse Oximetry (%) 98 09/05/17 06:00 Constitutional: Yes: No Distress Eyes: Yes: Conjunctiva Clear Cardiovascular: Yes: Regular Rate and Rhythm, S1, S2 Respiratory: Yes: CTA Bilaterally Gastrointestinal: Yes: Normal Bowel Sounds, Soft. No: Tenderness Edema: No Labs: CBC, BMP 09/05/17 07:30 09/05/17 07:30 INR, PTT INR 0.98 (0.82-1.09) 09/03/17 08:44 Assessment/Plan S/P bloody BM resolved S/P near syncope BC (-) Stool c/s negative May substitute cipro 500mg po bid + flagyl 500mg po tid x 7d Outpatient GI follow up
--- NOTE | 2017-09-05 10:09 | DS ---
Physical Exam: SUBJECTIVE: Patient seen and examined, reports feeling much improved, ambulatory at bedside, denies any abdominal pain, patient denies any tactile fever. OBJECTIVE:This is a 66 y/o woman with a past medical history of OA, Pancreatic Cysts. Who reports to the ED with lower abdominal cramping, diarrhea and bright red blood per rectum since 11pm last night. Patient reports eating seafood- clams and pasta at a restaurant in [facility] last night around 6pm. Patient reports at 11pm she began having abdominal cramping and diarrhea with BRBPR and mucous > 6 times. She reports that initially she became diaphoretic and nauseous- resolved. Patient reports no other family members became ill, but they did not consume the same meal. Patient reports feeling well earlier that day without incident. Patient reports having an allergic reaction to Clams- Hives many years ago, and has had Clams since without incident. Patient reports not following a "healthy diet" as well as not drinking lots of fluids. Patient reports a change in bowel habits around June, but has since been more regular. Her last colonoscopy was at age 52- no polyps, per pt. Patient denies fever, chills, cough, CP, vomiting, constipation, dysuria, hematuria Vital Signs Period Temp Pulse Resp BP Sys/Mckeon Pulse Ox Last 24 Hr 97.9 F-98.0 F 51-58 16-18 98-105/43-57 97-98 PHYSICAL EXAM GENERAL: The patient is awake, alert, and fully oriented, in no acute distress. HEAD: Normal with no signs of trauma. EYES: PERRL, extraocular movements intact, sclera anicteric, conjunctiva clear. ENT: Ears normal, nares patent, oropharynx clear without exudates, moist mucous membranes. NECK: Trachea midline, full range of motion, supple. LUNGS: Breath sounds equal, clear to auscultation bilaterally, no wheezes, no crackles, no accessory muscle use. HEART: Regular rate and rhythm, S1, S2 without murmur, rub or gallop. ABDOMEN: Soft, nontender, nondistended, normoactive bowel sounds, no guarding, no rebound, no hepatosplenomegaly, no masses. EXTREMITIES: 2+ pulses, warm, well-perfused, no edema. NEUROLOGICAL: Cranial nerves II through XII grossly intact. Normal speech, gait not observed. PSYCH: Normal mood, normal affect. SKIN: Warm, dry, normal turgor, no rashes or lesions noted. LABS Laboratory Results - last 24 hr 09/05/17 09/05/17 07:30 07:30 WBC 7.5 RBC 4.61 Hgb 13.7 Hct 41.7 MCV 90.3 MCH 29.8 MCHC 33.0 RDW 12.6 Plt Count 299 MPV 9.9 Neutrophils % 66.4 Lymphocytes % 22.6 D Monocytes % 6.6 Eosinophils % 3.5 Basophils % 0.9 Sodium 134 L Potassium 4.0 Chloride 102 Carbon Dioxide 25 Anion Gap 7 L BUN 7 Creatinine 0.7 Creat Clearance w eGFR > 60 Random Glucose 91 Calcium 8.8 Phosphorus 4.4 Magnesium 1.7 L Total Bilirubin 0.9 AST 21 D ALT 12 D Alkaline Phosphatase 52 D Total Protein 6.2 L Albumin 3.7 Microbiology 09/03/17 17:00 Blood - Peripheral Venous Blood Culture - Preliminary NO GROWTH OBTAINED AFTER 24 HOURS, INCUBATION TO CONTINUE FOR 4 DAYS. 09/03/17 17:00 Blood - Peripheral Venous Blood Culture - Preliminary NO GROWTH OBTAINED AFTER 24 HOURS, INCUBATION TO CONTINUE FOR 4 DAYS. 09/03/17 08:55 Stool Gram Stain - Final 09/03/17 08:55 Stool Salmonella/Shigella Culture - Preliminary NO ENTERIC PATHOGENS, 24 HOURS, ON PRIMARY PLATES 09/03/17 08:55 Stool Yersinia Culture - Preliminary NO ENTERIC PATHOGENS, 24 HOURS, ON PRIMARY PLATES 09/03/17 08:55 Stool Vibrio Culture - Preliminary NO ENTERIC PATHOGENS, 24 HOURS, ON PRIMARY PLATES 09/03/17 08:55 Stool Escherichia coli 0157 Culture - Preliminary NO ENTERIC PATHOGENS, 24 HOURS, ON PRIMARY PLATES IMAGING ct of abd/pelvis: nonspecific infectious vs inflammatory colitis, descending colon, proximal sigmoid colon HOSPITAL COURSE: Patient was admitted from the emergency department for acute colitis, secondary to inflammatory and infectious, leukocytosis resolved patient is afebrile. Patient was treated with 48 hours of flagyl and rocephin. stool culture are negative to date, patient was started on clear liquid diet then advanced. ID Dr Acevedo was consulted. Dr Lee, GI consulted, patient will require outpatient follow up within 6 weeks for colonoscopy. PLAN: - discharge with flagyl and cipro for 7 days - strict follow up with Dr Lee, GI within 6 weeks Date of Admission:09/03/17 Date of Discharge: 09/05/17 Minutes to complete discharge: 45 Discharge Summary Reason For Visit: COLITIS Current Active Problems Abdominal cramping (Acute) BRBPR (bright red blood per rectum) (Acute) Colitis, acute (Acute) DVT prophylaxis (Acute) Condition: Stable - Instructions - Home Medications Comprehensive Discharge Medication List: Ambulatory Orders NK [No Known Home Medication] 07/24/17 This patient is new to me today: No Emergency Visit: Yes ED Registration Date: 09/03/17 Care time: The patient presented to the Emergency Department on the above date and was hospitalized for further evaluation of their emergent condition. Critical Care patient: No - Discharge Referral Referred to [facility] Med P.C.: No
== END 2017-09-05 11:40 | disposition home or self-care (01) | DRG 816 ==
LOC: FER 08:14 → FM/S 15:23
PROVIDERS: ADMIT Hospitalist; ATTEND Nurse Practitioner Family
DX: T61.781A Other shellfish poisoning, accidental (unintentional), initial encounter (principal); K86.2 Cyst of pancreas; K52.1 Toxic gastroenteritis and colitis; K62.5 Hemorrhage of anus and rectum
CPT/HCPCS: 36415; 74177-TC; 80048; 80053; 81003; 82272; 83605; 83690; 83735; 84100; 85025; 85610; 85730; 86850; 86900; 86901; 87040; 87045; 87046; 87086; 87205; 87798; 99283-25

== ENCOUNTER 2018-01-10 07:30 | Day surgery (SDC) | payer MEDICARE, OTHER ==
[2018-01-07 12:48] VITALS: BMI 22.4
[2018-01-10] MEDS ORDERED: PROPOFOL 20 ML ONE ×2 (07:40)
[2018-01-10 10:59] VITALS: TEMP 97.6
[2018-01-10 11:00] VITALS: BP 114/62; PULSE 58
== END 2018-01-10 10:50 | disposition home or self-care (01) ==
LOC: FASU-ENDO 07:30
PROVIDERS: ATTEND Internal Medicine Gastroenterology
PROC: 0DJD8ZZ Inspection of Lower Intestinal Tract, Via Natural or Artificial Opening Endoscopic (ICD-10-PCS; principal; 2018-01-10 09:04)
DX: Z12.11 Encounter for screening for malignant neoplasm of colon (principal); K57.30 Diverticulosis of large intestine without perforation or abscess without bleeding; K64.8 Other hemorrhoids; Z85.828 Personal history of other malignant neoplasm of skin

== ENCOUNTER 2019-07-12 20:27 | Emergency (ER) | payer OTHER ==
[2019-07-12 20:42] VITALS: BP 145/81; PULSE 71; TEMP 97.4; BMI 28.3
[2019-07-12 20:53] LABS: HEMATOCRIT 43.8 % (32.4-45.2); HEMOGLOBIN 14.8 GM/dl (10.7-15.3); MCH 30.8 pg (25.7-33.7); MCHC 33.9 g/dl (32.0-36.0); MEAN CELL VOLUME 90.7 fl (80-96); MEAN PLT VOLUME 8.6 fl (7.5-11.1); PLATELET COUNT 369 K/MM3 (134-434); RBC 4.82 M/mm3 (3.60-5.2); RDW 12.4 % (11.6-15.6)
[2019-07-12 21:00] LABS: ADD RBC MORPHOLOGY YES
[2019-07-12 21:10] LABS: ALBUMIN 4.4 g/dl (3.4-5.0); BILIRUBIN,TOTAL 0.5 mg/dl (0.2-1); CALCIUM 9.2 mg/dl (8.5-10); CREATININE 0.9 mg/dl (0.55-1.3); POTASSIUM 3.6 mmol/L (3.5-5.1); TOT PROT 7.1 g/dl (6.4-8.2)
[2019-07-12] MEDS ORDERED: morphine CARPU-JECT 2 MG/1 ML DISP.SYRIN IVPUSH ONE ×2 (21:32→22:21)
[2019-07-12] MEDS ORDERED: SODIUM CHLORIDE 1,000 ML IV STA (21:32)
[2019-07-12] MEDS ORDERED: morphine SULFATE 4 MG/ML VIAL ONE (21:36)
[2019-07-12 23:20] LABS: PLATELET ESTIMATE ADEQUATE
--- NOTE | 2019-07-13 02:04 | PDOC ---
Documentation entered by Tiffany Mendoza SCRIBE, acting as scribe for Yamilka Hernandez MD. Yamilka Hernandez MD: This documentation has been prepared by the Kelly bernard Adrianna, SCRIBE, under my direction and personally reviewed by me in its entirety. I confirm that the documentation accurately reflects all work, treatment, procedures, and medical decision making performed by me. History of Present Illness - General Chief Complaint: Nausea/Vomiting Stated Complaint: N/V/D Time Seen by Provider: 07/12/19 20:34 - History of Present Illness Initial Comments: The patient is a 68 year old female, with a significant PMH of OA and pancreatic cysts, who presents to the ED for evaluation of abdominal pain, nausea, vomit, and diarrhea for 1.5 hours. Patient had tortellini and wine earlier this evening (around 4 pm), and developed sudden onset abdominal cramping while at rest approximately 4 hours later. She states that she felt as if she needed to go to the bathroom, but nothing came out. Shortly after, she felt nauseous and reports multiple episodes of vomit and diarrhea. She was unable to tell if there was blood in either the vomit or diarrhea as it was red in color secondary to her wine consumption. She endorses cold sweats, malaise, lightheadedness, and unsteady gait secondary to the numerous episodes of vomit. Patient called EMS, but RMA as she wanted to have her son bring her to the ED. She notes the abdominal cramping remains while in the Ed. Patient notes a history of similar symptoms one year ago, where she was admitted and told it was food poisoning (workup was negative for any acute pathology). Allergies: Ciprofloxacin Surgical History: None reported Social History: Social EtOH use. Denies tobacco or illicit drug use PCP: Dr. Luke Past History - Past Medical History Allergies/Adverse Reactions: Allergies Allergy/AdvReac Type Severity Reaction Status Date / Time ciprofloxacin [From Cipro] AdvReac Severe SEVERE Verified 01/10/18 08:00 NAUSEA/VOMITTING/DIARRHEA Home Medications: Ambulatory Orders NK [No Known Home Medication] 07/12/19 Anemia: No Asthma: No Cancer: Yes (BASAL CA) Cardiac Disorders: No CVA: No COPD: No CHF: No Dementia: No Diabetes: No GI Disorders: No Disorders: No HTN: No Hypercholesterolemia: No Liver Disease: No Seizures: No Thyroid Disease: No Other medical history: OSTEOPOROSIS - Surgical History Abdominal Surgery: No Appendectomy: No Cardiac Surgery: No Cholecystectomy: No Lung Surgery: No Neurologic Surgery: No Orthopedic Surgery: No - Immunization History Td Vaccination: No - Psycho Social/Smoking Cessation Hx Smoking Status: No Smoking History: Never smoked Have you smoked in the past 12 months: No Number of Cigarettes Smoked Daily: 0 Hx Alcohol Use: Yes (socially) Drug/Substance Use Hx: No Substance Use Type: Alcohol Hx Substance Use Treatment: No Review of Systems - Review of Systems Comments:: General: +Cold sweats. +Malaise. No fevers, no weight loss HEENT: No change in vision. No sore throat,. No ear pain CardioVascular: No chest pain or shortness of breath Respiratory:No cough, or wheezing. Gastrointestinal: +Abdominal cramping. +Nausea. +Vomit. +Diarrhea. no constipation. Genitourinary: No dysuria, hematuria, or frequency Musculoskeletal: No joint or muscle swelling Neurologic: +Lightheaded.+Unsteady gait. No headache, vertigo, dizziness or loss of consciousness Psychiatric: nor depression Skin: No rashes or easy bruising Endocrine: no increased thirst or abnormal weight change Allergic: no skin or latex allergy All other systems reviewed and normal *Physical Exam - Vital Signs Last Vital Signs Temp Pulse Resp BP Pulse Ox 97.4 F L 71 16 145/81 100 07/12/19 20:29 07/12/19 20:29 07/12/19 20:29 07/12/19 20:29 07/12/19 20:29 - Physical Exam Comments: General: Well-nourished well-developed individual, no acute distress HEENT: +Dry mucous membranes. Throat: Normal, tonsils normal, no erythema or exudate Neck: Supple, no meningeal signs, no lymphadenopathy Eyes: Pupils equal reactive and round, extraocular motion intact Chest: Nontender to palpation Cardiac: S1-S2 normal, regular rate and rhythm, no murmurs rubs or gallops Respiratory: Lungs clear to auscultation bilateral Abdomen: +Mild suprapubic tenderness to palpation. No masses, rebound, or involuntary guarding. Soft, nondistended, normal bowel sounds. Rectal: +Scant liquid stool in ampulla. No gross blood or perirectal abnormality. Extremities: Warm, dry, no cyanosis, clubbing, or edema Skin: No rashes Neuro: Alert and oriented x3, nonfocal exam, grossly intact, normal gait Psych: Normal mood and affect ED Treatment Course - LABORATORY CBC & Chemistry Diagram: 07/12/19 20:40 07/12/19 20:40 - ADDITIONAL ORDERS Additional order review: Laboratory Results 07/12/19 07/12/19 21:35 20:40 Sodium 136 Potassium 3.6 Chloride 98 Carbon Dioxide 27 Anion Gap 11 BUN 18.0 Creatinine 0.9 Est GFR (CKD-EPI)AfAm 77.22 Est GFR (CKD-EPI)NonAf 66.63 Random Glucose 142 H Calcium 9.2 Total Bilirubin 0.5 AST 23 ALT 13 Alkaline Phosphatase 65 Total Protein 7.1 Albumin 4.4 Stool Occult Blood Negative 07/12/19 20:40 RBC 4.82 MCV 90.7 MCHC 33.9 RDW 12.4 MPV 8.6 Neutrophils % Chief Technician X Ray Lymphocytes % Chief Technician X Ray Monocytes % Chief Technician X Ray Eosinophils % Chief Technician X Ray Basophils % Chief Technician X Ray - Medications Given in the ED: ED Medications Discontinued Medications Generic Name Dose Route Start Last Admin Trade Name Freq PRN Reason Stop Dose Admin Morphine Sulfate 2 mg 07/12/19 21:32 07/12/19 21:38 Morphine Injection - IVPUSH 07/12/19 21:33 2 mg ONCE ONE Administration Medical Decision Making - Medical Decision Making As noted above, this otherwise healthy 68-year-old woman presents with several hour history of nausea/vomiting/diarrhea with crampy abdominal pain. Symptoms began a few hours after meal the patient prepared herself at home. No recent meals or food prepared outside. No recent travel. Patient has a history of bloody diarrhea last year; colonoscopy subsequent to this revealed no acute pathology. She does have internal hemorrhoids seen on the colonoscopy. Exam as noted. Laboratory evaluation notable only for mild elevation of white blood cell count of 13,100. Otherwise, labs are essentially normal. Hemoccult negative Patient received 2 L of normal saline IV; she had stated that she had received IV morphine for crampy abdominal pain when she was admitted for her diarrhea last year; she stated that this was very helpful for the pain. She was given 2 mg morphine IV x2 doses over the time she was receiving her IV hydration. Patient felt much improved after hydration; she was accompanied by her son who will drive her home. She should maintain clear liquid diet and advance cautiously (patient drank small amounts of water and chey[place] yaya without vomiting prior to discharge). The patient should use Imodium as needed after loose bowel movements. She should return to the emergency room if she has persistent vomiting, persistent severe abdominal pain, bloody diarrhea or fever. Follow-up with your general doctor should be within the next 3 to 4 days. Discharge - Discharge Information Problems reviewed: Yes Clinical Impression/Diagnosis: Gastroenteritis Condition: Stable Disposition: HOME - Follow up/Referral Referrals: Hoa Luke [Primary Care Provider] - - Patient Discharge Instructions Patient Printed Discharge Instructions: DI for Bacterial Gastroenteritis -- Adult Additional Instructions: Clear liquids, advance diet cautiously Imodium 2 mg after every loose stool up to 16mg/day Return to ER if you have bright red blood / blood clots in stool or you develop high fever/severe abdominal pain Follow-up with your doctor within the next 3 to 4 days - Post Discharge Activity
== END 2019-07-12 23:26 | disposition home or self-care (01) ==
LOC: FER 20:27
PROC: 3E033NZ Introduction of Analgesics, Hypnotics, Sedatives into Peripheral Vein, Percutaneous Approach (ICD-10-PCS; principal; 2019-07-12)
DX: K52.9 Noninfective gastroenteritis and colitis, unspecified (principal)
CPT/HCPCS: 36415; 80053; 82272; 85025; 99283-25; J7030

== ENCOUNTER 2019-07-13 17:49 | Emergency (ER) | payer OTHER ==
[2019-07-13] MEDS ORDERED: PANTOPRAZOLE SODIUM 40 MG VIAL IVPUSH ONE (18:00)
[2019-07-13] MEDS ORDERED: SODIUM CHLORIDE 1,000 ML IV STA (18:00)
[2019-07-13] MEDS ORDERED: PANTOPRAZOLE SODIUM 40 MG VIAL ONE (18:01)
[2019-07-13 18:05] VITALS: BMI 28.3
[2019-07-13 18:33] LABS: BASO % 2.8 % (0-2.0); EOS % 0.7 % (0-4.5); HEMATOCRIT 38.1 % (32.4-45.2); LYMPH % 17.1 % (8-40); MCH 31.3 pg (25.7-33.7); MCHC 34.2 g/dl (32.0-36.0); MEAN CELL VOLUME 91.6 fl (80-96); MONO % 7.8 % (3.8-10.2); NEUT % 71.6 % (42.8-82.8); PLATELET COUNT 339 K/MM3 (134-434); RBC 4.16 M/mm3 (3.60-5.2); RDW 12.3 % (11.6-15.6); WHITE BLOOD COUNT 12.8 K/mm3 (4.0-10.8)
[2019-07-13 18:42] LABS: ALBUMIN 3.8 g/dl (3.4-5.0); BILIRUBIN,TOTAL 1.1 mg/dl (0.2-1); CALCIUM 8.8 mg/dl (8.5-10); CREATININE 0.7 mg/dl (0.55-1.3); TOT PROT 6.1 g/dl (6.4-8.2)
--- NOTE | 2019-07-13 19:18 | PDOC ---
Documentation entered by Martha Causey SCRIBE, acting as scribe for Leandro Rivera MD. Leandro Rivera MD: This documentation has been prepared by the rozibePadilla Lincy, SCRIBE, under my direction and personally reviewed by me in its entirety. I confirm that the documentation accurately reflects all work, treatment, procedures, and medical decision making performed by me. History of Present Illness - General Chief Complaint: Bleeding from Anus Stated Complaint: NAUSEA, ABD PAIN, RECTAL BLEEDING History Source: Patient Exam Limitations: No Limitations - History of Present Illness Initial Comments: 07/13/19 18:07 The patient is a 68-year-old female with a past medical history significant for OA, pancreatic cysts, and Internal hemorrhoids (confirmed on prior colonoscopy) who presents to the emergency department with bright red blood pre-rectum. The patient was seen in the ER on 07/12 for abdominal pain, nausea, vomiting, and diarrhea. The patient labs were significant for WBC of 13,000, otherwise unremarkable including negative stool occult, and the patient was discharged home. The patient reports since reaching home, the abdominal pain returned, associated with nausea. The patient reports she had difficulty sleeping last night, secondary to intermittent episodes of abdominal pain, no relief with tea. The patient describes the pain as cramping, like shes in labor, thats aggravated with movement. The patient reports taking Zofran for nausea, with relief. The patient reports since yesterday she has noticed some rectal bleeding , however, the bleeding worsened today with big clot passing. Denies vomiting and diarrhea today. Denies fever or chills. Allergies: Ciprofloxacin Surgical History: None reported Social History: Social EtOH use. Denies tobacco or illicit drug use PCP: Dr. Luke Past History - Past Medical History Allergies/Adverse Reactions: Allergies Allergy/AdvReac Type Severity Reaction Status Date / Time ciprofloxacin [From Cipro] AdvReac Severe SEVERE Verified 01/10/18 08:00 NAUSEA/VOMITTING/DIARRHEA Home Medications: Ambulatory Orders Ondansetron [Zofran *Odt*] 4 mg SL TID #10 od.tablet 07/13/19 Anemia: No Asthma: No Cancer: Yes (BASAL CA) Cardiac Disorders: No CVA: No COPD: No CHF: No Dementia: No Diabetes: No GI Disorders: No Disorders: No HTN: No Hypercholesterolemia: No Liver Disease: No Seizures: No Thyroid Disease: No - Surgical History Abdominal Surgery: No Appendectomy: No Cardiac Surgery: No Cholecystectomy: No Lung Surgery: No Neurologic Surgery: No Orthopedic Surgery: No - Immunization History Td Vaccination: No - Psycho Social/Smoking Cessation Hx Smoking Status: No Smoking History: Never smoked Have you smoked in the past 12 months: No Number of Cigarettes Smoked Daily: 0 Hx Alcohol Use: Yes (socially) Drug/Substance Use Hx: No Substance Use Type: Alcohol Hx Substance Use Treatment: No Review of Systems - Review of Systems Able to Perform ROS?: Yes Comments:: 07/13/19 18:07 Able to Perform ROS?: Yes Constitutional: Yes: Symptoms Reported, See HPI, Night Sweats. No: Chills, Diaphoresis, Fever, Loss of Appetite, Malaise, Weakness, Weight Stable, Unintentional Wgt. Loss, Unexplained weight Loss, Other HEENTM: Yes: Symptoms Reported, See HPI. No: Eye Pain, Blurred Vision, Tearing, Recent change in vision, Double Vision, Cataracts, Ear Pain, Ocular Prosthesis, Ear Discharge, Nose Pain, Nose Congestion, Tinnitus, Nose Bleeding, Hearing Loss, Throat Pain, Throat Swelling , Mouth Pain, Dental Problems, Difficulty Swallowing, Mouth Swelling, Other Respiratory: Yes: Symptoms reported, See HPI. No: Cough, Orthopnea, Shortness of Breath, SOB with Exertion, SOB at Rest, Stridor, Wheezing, Productive cough, Hemoptysis, Other Cardiac (ROS): Yes: Symptoms Reported, See HPI. No: Chest Pain, Edema, Irregular Heart Rate, Lightheadedness, Palpitations, Syncope, Chest Tightness, Other ABD/GI: Yes: +abdominal pain, nausea, rectal bleeding with clot passing. No: Abdominal Distended, Constipated, Diarrhea, Difficulty Swallowing, Poor Appetite, Poor Fluid Intake, Vomiting, Indigestion, Tarry Stools, Other : Yes: Symptoms Reported, See HPI Musculoskeletal: Yes: Symptoms Reported, See HPI. No: Back Pain, Gout, Joint Pain, Joint Swelling, Muscle Pain, Muscle Weakness, Neck Pain, Joint Stiffness, Other Integumentary: Yes: Symptoms Reported, See HPI. No: Bruising, Change in Color, Change in Hair/Nails, Dryness, Erythema, Flushing , Lesions, Lumps, Pallor, Pruritus, Rash, Sweating, Other Neurological: Yes: Symptoms reported, See HPI. No: Headache, Numbness, Paresthesia, Pre-Existing Deficit, Seizure, Tingling, Tremors, Weakness, Unsteady Gait, Ataxia, Dizziness, Other All Other Systems: Reviewed and Negative. *Physical Exam - Vital Signs Last Vital Signs Temp Pulse Resp BP Pulse Ox 98.6 F 65 18 144/80 97 07/13/19 17:51 07/13/19 17:51 07/13/19 17:51 07/13/19 17:51 07/13/19 17:51 - Physical Exam Comments: 07/13/19 18:09 General Appearance: Appropriately Dressed, Nourished. No: Apparent Distress, Disheveled, Respiratory/Chest: positive: Lungs Clear, Normal Breath Sounds. negative: Respiratory Distress, Crackles, Rales, Rhonchi, Stridor, Wheezing. Other Cardiovascular: positive: Regular Rate, Regular Rhythm, S1, S2. negative: Gallop/S3, Gallop/S4, Irregularly Irregular, Other Gastrointestinal/Abdominal: positive: soft, Normal Bowel Sounds, Flat, Soft. negative: Tenderness, Protuberant, Distended, Guarding, Rebound, Hernia, Mass. Rectal exam: Guaiac positive, no gross blood, no external hemorrhoids. Musculoskeletal: positive: Normal Inspection. negative: CVA Tenderness, Decreased Range of Motion. Extremity: positive: Normal Capillary Refill, Normal Inspection, Normal Range of Motion. Integumentary: positive: Normal Color, Dry, Warm. negative: Cyanotic, Erythema, Jaundice, Mottled, Pale, Cold, Clammy, Diaphoresis, Neurologic: positive: manager assurance II-XII NML intact, Fully Oriented, Alert, Normal Mood/ Affect, Normal Response, Motor Strength 5/5. ED Treatment Course - LABORATORY CBC & Chemistry Diagram: 07/13/19 18:12 07/13/19 18:12 - ADDITIONAL ORDERS Additional order review: 07/13/19 18:12 RBC 4.16 MCV 91.6 MCHC 34.2 RDW 12.3 MPV 9.0 Neutrophils % 71.6 Lymphocytes % 17.1 Monocytes % 7.8 Eosinophils % 0.7 Basophils % 2.8 H - RADIOLOGY Radiology Studies Ordered: Category Date Time Status ABDOMEN & PELVIS CT WITH CONTR [CT] Stat CT Scan 07/13/19 18:00 Ordered - Medications Given in the ED: ED Medications Discontinued Medications Generic Name Dose Route Start Last Admin Trade Name Delmis PRN Reason Stop Dose Admin Pantoprazole Sodium 40 mg 07/13/19 18:00 07/13/19 18:12 Protonix Iv IVPUSH 07/13/19 18:01 40 mg ONCE ONE Administration ED Progress Note - Progress Note Progress Note: 07/13/19 18:43 68 y/o female seen last night for abdominal pain and diarrhea/vomiting. Now with rectal bleeding / clots Will order labs and CT abdomen/pelvis Case will be signed out to Dr. Dukes at 7 pm, further orders as per ER attending. Discharge - Discharge Information Problems reviewed: Yes Clinical Impression/Diagnosis: Rectal bleeding Condition: Good - Follow up/Referral Referrals: Hoa Luke [Primary Care Provider] - - Patient Discharge Instructions - Post Discharge Activity
[2019-07-13] MEDS ORDERED: PIPERACILLIN/TAZOB 4.5 GM 4.5 GM in DEXTROSE 5%-WATER 100 ML IVPB ONE (19:34)
[2019-07-13] MEDS ORDERED: PIPERACILLIN/TAZOBACTAM 4.5 GM VIAL IVPB ONE (19:35)
[2019-07-13] MEDS ORDERED: HYOSCYAMINE SULFATE 0.125 MG *ODT PO ONE (19:45)
[2019-07-13] MEDS ORDERED: HYOSCYAMINE SULFATE 0.125 MG *ODT ONE (19:50)
[2019-07-13 20:41] VITALS: BP 123/66; PULSE 52; TEMP 99.3
--- NOTE | 2019-07-13 20:52 | PDOC ---
*Physical Exam - Vital Signs Last Vital Signs Temp Pulse Resp BP Pulse Ox 99.3 F 52 L 16 123/66 97 07/13/19 20:40 07/13/19 20:40 07/13/19 20:40 07/13/19 20:40 07/13/19 20:40 ED Treatment Course - LABORATORY CBC & Chemistry Diagram: 07/13/19 18:12 07/13/19 18:12 - ADDITIONAL ORDERS Additional order review: Laboratory Results 07/13/19 18:12 Sodium 138 Potassium 4.0 Chloride 105 Carbon Dioxide 24 Anion Gap 9 BUN 10.0 Creatinine 0.7 Est GFR (CKD-EPI)AfAm 104.64 Est GFR (CKD-EPI)NonAf 90.29 Random Glucose 101 Calcium 8.8 Total Bilirubin 1.1 H AST 22 ALT 16 Alkaline Phosphatase 56 Total Protein 6.1 L Albumin 3.8 07/13/19 18:12 RBC 4.16 MCV 91.6 MCHC 34.2 RDW 12.3 MPV 9.0 Neutrophils % 71.6 Lymphocytes % 17.1 Monocytes % 7.8 Eosinophils % 0.7 Basophils % 2.8 H - Medications Given in the ED: ED Medications Discontinued Medications Generic Name Dose Route Start Last Admin Trade Name Freq PRN Reason Stop Dose Admin Hyoscyamine Sulfate 0.125 mg 07/13/19 19:45 07/13/19 19:50 Levsin Odt - PO 07/13/19 19:46 0.125 mg ONCE ONE Administration Sodium Chloride 1,000 mls @ 1,000 mls/hr 07/13/19 18:00 07/13/19 18:12 Normal Saline - IV 07/13/19 18:59 1,000 mls/hr ASDIR STA Administration Metronidazole 500 mg in 100 mls @ 100 mls/hr 07/13/19 19:35 07/13/19 19:35 Flagyl 500mg Premixed Ivpb - IVPB 07/13/19 20:34 100 mls/hr ONCE ONE Administration Piperacillin Sod/Tazobactam 100 mls @ 200 mls/hr 07/13/19 19:34 07/13/19 20: 05 Sod 4.5 gm/ Dextrose IVPB 07/13/19 20:03 200 mls/hr ONCE ONE Administration Protocol Pantoprazole Sodium 40 mg 07/13/19 18:00 07/13/19 18:12 Protonix Iv IVPUSH 07/13/19 18:01 40 mg ONCE ONE Administration ED Progress Note - Progress Note Progress Note: 07/13/19 19:15 Care of this patient was transferred to me from Dr. Pradhan at 1900 hrs. Patient is a 68-year-old female who comes in complaining of left lower quadrant abdominal pain. Patient was here yesterday and discharged home but a CAT scan was not obtained. Patient now returns complaining of more pain. Patient does have a mildly elevated white count of 12.8. Patient has his CAT scan that is been completed and results are pending. 19:25 Patient's CAT scan is positive for diverticulitis. Patient started on antibiotics as patient is allergic to Cipro patient was given Flagyl and Zosyn. Patient will be discharged home on Bactrim and Zosyn. In addition to that patient was given hyoscyamine for her abdominal pain which does appear to have helped with the crampy nature to the pain Discharge - Discharge Information Problems reviewed: Yes Clinical Impression/Diagnosis: Rectal bleeding, Diverticulitis Condition: Good Disposition: HOME - Admission No - Follow up/Referral Referrals: Hoa Luke [Primary Care Provider] - - Patient Discharge Instructions Additional Instructions: Take bactrim 1 tablet two times a day for the next 10 days. Take Flagyl 1 tablet three a day for the next 10 days. Return to the emergency department immediately with ANY new, persistent or worsening symptoms. Continue any medications as previously prescribed by your physician. You should follow up with your primary doctor as soon as possible regarding today's emergency department visit. . Please make sure your doctor reviews the results of your emergency evaluation. Thank you for coming to the Emergency Department today for your care. It was a pleasure to see you today. Please note that your evaluation is INCOMPLETE until you follow-up with your doctor. A diverticulitis diet is recommend as part of a short-term treatment plan for acute diverticulitis. Diverticula are small, bulging pouches that can form in the lining of the digestive system. They're found most often in the lower part of the large intestine (colon). This condition is called diverticulosis. In some cases, one or more of the pouches become inflamed or infected. This is known as diverticulitis. Mild cases of diverticulitis are usually treated with antibiotics and a diverticulitis diet, which includes clear liquids and low-fiber foods. More- severe cases typically require hospitalization. A diverticulitis diet is a temporary measure to give your digestive system a chance to rest. Oral intake is usually reduced until bleeding and diarrhea subside. A diverticulitis diet starts with only clear liquids for a few days. Examples of items allowed on a clear liquid diet include: Broth Fruit juices without pulp, such as apple juice Ice chips Ice pops without bits of fruit or fruit pulp Gelatin Water Tea or coffee without cream As you start feeling better, your doctor will recommend that you slowly add low- fiber foods. Examples of low-fiber foods include: Canned or cooked fruits without skin or seeds Canned or cooked vegetables such as green beans, carrots and potatoes (without the skin) Eggs, fish and poultry Refined white bread Fruit and vegetable juice with no pulp Low-fiber cereals Milk, yogurt and cheese eat yogurt at least once a day as it will help replenish the healthy bacteria in your intestines that the antibiotics kill. White rice, pasta and noodles You should feel better within two or three days of starting the diet and antibiotics. If you haven't started feeling better by then, call your doctor. Also contact your doctor if: You develop a fever Your abdominal pain is worsening You're unable to keep clear liquids down These may indicate a complication that requires hospitalization. The diverticulitis diet has few risks. However, continuing a clear liquid diet for more than a few days can lead to weakness and other complications, since it doesn't provide enough of the nutrients your body needs. For this reason, I recommend you to transition to the low fiberl diet as soon as you can tolerate it and then back to a normal diet once you finish the antibiotics. - Post Discharge Activity Work/Back to School Note: Back to Work
== END 2019-07-13 20:58 | disposition home or self-care (01) ==
LOC: FER 17:49
PROC: 3E03329 Introduction of Other Anti-infective into Peripheral Vein, Percutaneous Approach (ICD-10-PCS; principal; 2019-07-13)
PROC: 3E033GC Introduction of Other Therapeutic Substance into Peripheral Vein, Percutaneous Approach (ICD-10-PCS; 2019-07-13)
DX: K62.5 Hemorrhage of anus and rectum (principal); M19.90 Unspecified osteoarthritis, unspecified site; K86.2 Cyst of pancreas; K64.8 Other hemorrhoids; Z85.828 Personal history of other malignant neoplasm of skin; Z88.8 Allergy status to other drugs, medicaments and biological substances
CPT/HCPCS: 36415; 74177-TC; 80053; 85025; 99283-25; J7030

== ENCOUNTER 2020-07-28 09:36 | Day surgery (SDC) | payer OTHER ==
--- OUTSIDE RECORDS SUMMARY | 2020-07-23 10:14 | XMS ---
:1950 Author Organization [facility] Care Team Providers Name Role Phone RICK LEARY Unavailable Unavailable Re-disclosure Warning The records that you are about to access may contain information from federally- assisted alcohol or drug abuse programs. If such information is present, then the following federally mandated warning applies: This information has been disclosed to you from records protected by federal confidentiality rules (42 CFR part 2). The federal rules prohibit you from making any further disclosure of this information unless further disclosure is expressly permitted by the written consent of the person to whom it pertains or as otherwise permitted by 42 CFR part 2. A general authorization for the release of medical or other information is NOT sufficient for this purpose. The Federal rules restrict any use of the information to criminally investigate or prosecute any alcohol or drug abuse patient.The records that you are about to access may contain highly sensitive health information, the redisclosure of which is protected by Article 27-F of the [facility] Public Health law. If you continue you may haveaccess to information: Regarding HIV / AIDS; Provided by facilities licensed or operated by the [facility] Office of Mental Health; or Provided by the [facility] Office for People With Developmental Disabilities. If such information is present, then the following [facility] mandated warning applies: This information has been disclosed to you from confidential records which are protected by state law. State law prohibits you from making any further disclosure of this information without the specific written consent of the person to whom it pertains, or as otherwise permitted by law. Any unauthorized further disclosure in violation of state law may result in a fine or usp sentence or both. A general authorization for the release of medical or other information is NOT sufficient authorization for further disclosure. 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 [id number] SP [id number] Problems, Conditions, and Diagnoses Code Display Name Description Problem Type Effective Data Sour ce(s) Dates Z03.818 Encounter for ENCNTR FOR OBS Diagnosis 12/30/2019 [facility] observation for FOR SUSP EXPSR TO 11:25:00 AM [facility] suspected OTH BIOLG AGENTS [facility]T Care [facility] poration exposure to other RULED OUT biological agents ruled out Results ID Date Data Source [id number] 12/30/2019 12:00:00 AM EDT [facility] Name Value Range Interpretation Code Description Data Berna rce(s) Supporting Document(s ) 2019-nCoV [facility] RNA XXX EVY+probe- Imp This lab was ordered by [facility] and reported by [employer] Procedure
[2020-07-23 13:11] VITALS: BMI 21.7
--- OUTSIDE RECORDS SUMMARY | 2020-07-28 09:43 | XMS ---
:1950 Author Organization [facility] Care Team Providers Name Role Phone RICK [...] is protected by Article 27-F of the [facility] Public Health law. If you continue you may haveaccess to information: Regarding HIV / AIDS; Provided by facilities licensed or operated by the [facility] Office of Mental Health; or Provided by the [facility] Office for People With Developmental Disabilities. If such information is present, then the following [facility] mandated warning applies: This information has been [...] Source(s ) Outpatient Attender: [employer], 12/30/2019 Z03.818 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 SP [id number] Problems, Conditions, and Diagnoses Code Display Name Description Problem Type Effective Data Sour ce(s) Dates Z03.818 Encounter for ENCNTR FOR OBS Diagnosis 12/30/2019 [facility] observation for FOR SUSP EXPSR TO 11:25:00 AM [facility] suspected OTH BIOLG AGENTS [facility] poration exposure to other RULED OUT biological agents ruled out Results ID Date Data Source [id number] 07/25/2020 08:25:00 AM EST [facility] Name Value Range Interpretation Description Data Sup porting Code Source(s) Document(s ) SARS [facility] coronavirus 2 RNA This lab was ordered by [facility] and reported by [facility]. ID Date Data Source [id number] 12/30/2019 12:00:00 AM EDT [facility] Name Value Range Interpretation Code Description Data Berna rce(s) Supporting Document(s ) 2019-nCoV [facility] RNA XXX EVY+probe- Imp This lab was ordered by [facility] and reported by [employer] Procedure
[2020-07-28] MEDS ORDERED: CIPROFLOXACIN 0.3% EYE DROPS 5 ML BOTTLE ONE (09:49)
[2020-07-28] MEDS: TROPICAMIDE 1% OPHTH SOLN 15 ML BOTTLE ONE ×3 (10:10→10:20)
[2020-07-28] MEDS: CYCLOPENTOLATE 2% OPHTH SOLN 2 ML BOTTLE ONE ×3 (10:10→10:20)
[2020-07-28] MEDS: TOBRAMYCIN 0.3% OPHTH SOLN 5 ML BOTTLE ONE ×3 (10:10→10:20)
[2020-07-28] MEDS: PHENYLEPHRINE 2.5% OPHTH SOLN 15 ML BOTTLE ONE ×3 (10:10→10:20)
[2020-07-28] MEDS ORDERED: MIDAZOLAM HCL 2 MG/2 ML SINGLE DOSE VIAL ONE ×3 (11:54→12:19)
[2020-07-28 12:44] VITALS: TEMP 97.8
[2020-07-28 13:08] VITALS: BP 121/74; PULSE 71
--- NOTE | 2020-07-29 13:10 | OP ---
DATE OF OPERATION: 07/28/2020 OPERATIVE PROCEDURE: Lens Phacoemulsification with Posterior Chamber Intraocular Lens Placement Left Eye PREOPERATIVE DIAGNOSIS: Visually Significant Cataract of Left Eye POSTOPERATIVE DIAGNOSIS: Visually Significant Cataract of Left Eye SURGEON: Kiko Chen M.D. ANESTHESIA: MAC ANESTHESIOLOGIST: PROCEDURE: The patient was brought to the operating room and placed under monitored anesthesia care by Anesthesia. A drop of Tetracaine was then placed over the left eye. The patient was then prepped and draped in the usual sterile manner. A speculum was then placed over the left eye. The eye was then well irrigated with copious amounts of BSS (balanced salt solution). The operating microscope was then moved into position. A paracentesis was performed using a 15 degree blade. At this point 0.5 mL of 1% preservative-free lidocaine was injected into the anterior chamber. Amvisc plus was then injected into the anterior chamber. A clear corneal incision was then formed using a 2.2 mm keratome. A capsulorrhexis was then performed in a continuous circular fashion beginning with a cystotome, completed with an Utratas forceps. Hydrodissection was then performed using BSS on a cannula. The phaco probe was then introduced through the corneal wound and the cataract was removed using the phaco chop technique. Approximately 3 seconds of absolute phaco time was used. The remaining cortex was then removed using irrigation and aspiration with an I/A probe. The capsule was then filled with regular Amvisc and the capsule was noted to be intact. A previously selected foldable posterior chamber intraocular lens was then injected into the capsule through the corneal wound using a lens injector. It was then dialed into position using a Sinskey hook. The Amvisc was then removed using irrigation and aspiration. Miostat was then injected through the paracentesis to constrict the pupil. The paracentesis and corneal wound were then hydrated and noted to be water tight. A drop of Maxitrol was then placed over the eye. The speculum was removed and clear shield was taped over the eye. The patient tolerated the procedure well and there were no surgical complications. The patient was asked to follow up in my office the next day. KIKO CHEN M.D. ANDREY/[id number]
== END 2020-07-28 13:15 | disposition home or self-care (01) ==
LOC: FASU 09:36
PROVIDERS: ATTEND Ophthalmology
PROC: 08RK3JZ Replacement of Left Lens with Synthetic Substitute, Percutaneous Approach (ICD-10-PCS; principal; 2020-07-28 12:07)
DX: H26.8 Other specified cataract (principal)

== ENCOUNTER 2020-11-02 14:47 | Emergency (ER) | payer OTHER | END 2020-11-02 16:08 | disposition home or self-care (01) | LOC: JVIRT 14:47 | DX: R07.9 Chest pain, unspecified (principal) | CPT/HCPCS: G2251-GT; Q3014-GT ==

== ENCOUNTER 2023-07-18 08:52 | Day surgery (SDC) | payer OTHER ==
[2023-07-13 14:11] VITALS: BMI 21.7
[2023-07-18] MEDS ORDERED: TOBRAMYCIN 0.3% OPHTH SOLN 5 ML BOTTLE ONE (09:07)
[2023-07-18] MEDS: CYCLOPENTOLATE 2% OPHTH SOLN 2 ML BOTTLE ONE ×3 (09:35→09:45)
[2023-07-18] MEDS: TOBRAMYCIN 0.3% OPHTH SOLN 5 ML BOTTLE OD SCH ×3 (09:35→09:45)
[2023-07-18] MEDS: TROPICAMIDE 1% OPHTH SOLN 15 ML BOTTLE ONE ×3 (09:35→09:45)
[2023-07-18] MEDS: PHENYLEPHRINE 2.5% OPTHALMIC DROP 2ML BOTTLE ONE ×3 (09:35→09:45)
[2023-07-18 09:40] VITALS: RESP 16; TEMP 96.9
[2023-07-18] MEDS ORDERED: ONDANSETRON 4 MG/2 ML VIAL ONE (11:10)
[2023-07-18] MEDS ORDERED: MIDAZOLAM HCL 2 MG/2 ML SINGLE DOSE VIAL ONE (11:10)
[2023-07-18 12:03] VITALS: BP 104/54; PULSE 58
[2023-07-18] MEDS ORDERED: TOBRAMYCIN 0.3% OPHTH SOLN 5 ML BOTTLE OD SCH (14:00)
== END 2023-07-18 12:45 | disposition home or self-care (01) ==
LOC: FASU 08:52
PROVIDERS: ATTEND Ophthalmology
PROC: 08RJ3JZ Replacement of Right Lens with Synthetic Substitute, Percutaneous Approach (ICD-10-PCS; principal; 2023-07-18 11:13)
DX: H26.8 Other specified cataract (principal)
CPT/HCPCS: 66984; V2632

== ENCOUNTER 2024-01-21 05:23 | Emergency (ER) | payer OTHER ==
[2024-01-21] MEDS ORDERED: ONDANSETRON 4 MG/2 ML VIAL ONE ×2 (05:33→07:19)
[2024-01-21 05:46] VITALS: BMI 23.4
[2024-01-21] MEDS: ONDANSETRON 4 MG/2 ML VIAL IVPUSH ONE ×2 (05:47→07:26)
[2024-01-21] MEDS: SODIUM CHLORIDE 1,000 ML IV ONE ×2 (05:47→06:35)
[2024-01-21 06:35] LABS: POTASSIUM 4.5 mmol/L (3.5-5.1)
[2024-01-21 06:38] LABS: ALBUMIN 3.9 g/dl (3.4-5.0); BLOOD UREA NITROGEN 19.3 mg/dL (7-18); CALCIUM 9.6 mg/dL (8.5-10.1)
[2024-01-21 06:41] LABS: CREATININE 0.8 mg/dL (0.55-1.3)
[2024-01-21 06:43] LABS: BILIRUBIN,TOTAL 0.5 mg/dL (0.2-1); TOT PROT 7.2 g/dl (6.4-8.2)
[2024-01-21 06:46] LABS: HEMATOCRIT 42.9 % (32.4-45.2); HEMOGLOBIN 14.2 GM/dL (10.7-15.3); MCH 29.7 pg (25.7-33.7); MCHC 33.1 g/dl (32.0-36.0); MEAN CELL VOLUME 89.8 fl (80-96); MEAN PLT VOLUME 8.6 fl (7.5-11.1); PLATELET COUNT 395 10^3/uL (134-434); RBC 4.77 M/mm3 (3.60-5.2); RDW 13.4 % (11.6-15.6); WHITE BLOOD COUNT 13.1 K/mm3 (4.0-10.0)
[2024-01-21] MEDS ORDERED: ACETAMINOPHEN INJECTION 100 ML IVPB ONE (07:43)
[2024-01-21] MEDS: ACETAMINOPHEN 1000 MG/100 ML BAG IVPB ONE (07:47)
[2024-01-21 08:01] LABS: EPITHELIAL CELLS 0-5 /hpf
[2024-01-21 09:46] VITALS: BP 133/74; PULSE 70; RESP 18; TEMP 98.2
== END 2024-01-21 10:16 | disposition home or self-care (01) ==
LOC: FER 05:23
PROC: 3E033NZ Introduction of Analgesics, Hypnotics, Sedatives into Peripheral Vein, Percutaneous Approach (ICD-10-PCS; principal; 2024-01-21)
PROC: 3E033GC Introduction of Other Therapeutic Substance into Peripheral Vein, Percutaneous Approach (ICD-10-PCS; 2024-01-21)
PROC: 3E033GC Introduction of Other Therapeutic Substance into Peripheral Vein, Percutaneous Approach (ICD-10-PCS; 2024-01-21)
PROC: 3E0337Z Introduction of Electrolytic and Water Balance Substance into Peripheral Vein, Percutaneous Approach (ICD-10-PCS; 2024-01-21)
PROC: 3E0337Z Introduction of Electrolytic and Water Balance Substance into Peripheral Vein, Percutaneous Approach (ICD-10-PCS; 2024-01-21)
DX: R11.2 Nausea with vomiting, unspecified (principal); R19.7 Diarrhea, unspecified; R10.84 Generalized abdominal pain; K52.9 Noninfective gastroenteritis and colitis, unspecified
CPT/HCPCS: 36415; 74177-TC; 80053; 81003; 81015; 83690; 85027; 87086; 99285-25; J0131; Q9967